=== PATIENT | male | born 1990 | race Caucasian/White ===

== ENCOUNTER 2019-10-16 18:31 | Emergency (ER) | payer BC ==
[2019-10-16 18:34] VITALS: BP 158/78; PULSE 102; RESP 18; TEMP 98.3
[2019-10-16] MEDS ORDERED: RABIES IMMUNE GLOB 300 UNIT/ML 1 ML VIAL IM ONE (18:51)
[2019-10-16] MEDS ORDERED: RABIES VACCINE (PCEC) 2.5 UNIT KIT IM ONE (18:51)
--- NOTE | 2019-10-16 18:59 | ED ---
Recheck HPI - General Chief Complaint: Recheck/Abnormal Lab/Rx Stated Complaint: bat exposure Time Seen by Provider: 10/16/19 18:40 Source: patient, RN notes reviewed, old records reviewed Mode of arrival: ambulatory Limitations: no limitations - History of Present Illness Initial Comments: Patient is a 29-year-old male who presents the emergency department today with his for concern for bat exposure. Patient was exposed to the bat approximately 5 days ago. Patient reports that they woke up with a bat in the room. They deny any concern for a plate at this time or no blanton were noted on her skin for possible bite. They state that they were told by the health Department to come here for postexposure prophylaxis. Denies any significant sy mptoms. - Related Data Allergies Allergy/AdvReac Type Severity Reaction Status Date / Time No Known Allergies Allergy Verified 10/16/19 18:52 Review of Systems ROS Statement: Those systems with pertinent positive or pertinent negative responses have been documented in the HPI. ROS Other: All systems not noted in ROS Statement are negative. Past Medical History Past Medical History: No Reported History History of Any Multi-Drug Resistant Organisms: None Reported Past Surgical History: No Surgical Hx Reported Smoking Status: Never smoker Past Alcohol Use History: Occasional Past Drug Use History: None Reported General Exam - General Exam Comments Initial Comments: Patient is a pleasant 79-year-old male. Alert and oriented. No distress. Limitations: no limitations General appearance: alert, in no apparent distress Head exam: Present: atraumatic, normocephalic, normal inspection Eye exam: Present: normal appearance, PERRL, EOMI. Absent: scleral icterus, conjunctival injection, periorbital swelling ENT exam: Present: normal exam, mucous membranes moist Neck exam: Present: normal inspection. Absent: tenderness, meningismus, lymphadenopathy Respiratory exam: Present: normal lung sounds bilaterally. Absent: respiratory distress, wheezes, rales, rhonchi, stridor Cardiovascular Exam: Present: regular rate, normal rhythm, normal heart sounds. Absent: systolic murmur, diastolic murmur, rubs, gallop, clicks GI/Abdominal exam: Present: soft, normal bowel sounds. Absent: distended, tenderness, guarding, rebound, rigid Back exam: Present: normal inspection Neurological exam: Present: alert, oriented X3, CN II-XII intact Psychiatric exam: Present: normal affect, normal mood Skin exam: Present: warm Course Vital Signs 10/16/19 18:32 Temperature 98.3 F Pulse Rate 102 H Respiratory 18 Rate Blood Pressure 158/78 O2 Sat by Pulse 99 Oximetry Medical Decision Making - Medical Decision Making 29-year-old male presents emergency department today for concerns for bad exposure. He reportedly woke up with a bat in his room 5 days ago. [facility] health department and sent here for further evaluation. Patient was given rabies vaccine immunoglobulin emergency department. Patient was written for further rabies vaccines on days 05/26/2013. Patient will be going to outpatient with [facility]. Disposition Clinical Impression: Exposure to bat without known bite Disposition: HOME SELF-CARE Condition: Good Instructions (If sedation given, give patient instructions): Rabies (ED), Rabies Vaccine (ED) Additional Instructions: Follow-up with outpatient [facility] to have rabies vaccine administers on day 3, 7, and 14. Is patient prescribed a controlled substance at d/c from ED?: No Referrals: Unique Morales DO [Primary Care Provider] - 1-2 days Time of Disposition: 19:04
[2019-10-16] MEDS ORDERED: RABIES IMMUNE GLOB 300 UNIT/ML 5 ML VIAL IM ONE (19:00)
== END 2019-10-16 20:02 | disposition home or self-care (01) ==
LOC: EC 18:31
DX: Z23 Encounter for immunization (principal); Z29.14 Encounter for prophylactic rabies immune globulin; Z20.3 Contact with and (suspected) exposure to rabies
CPT/HCPCS: 90375; 90471; 90675; 96372; 99284